=== PATIENT | female | born 1930 | race Caucasian/White ===

== ENCOUNTER 2019-05-23 14:07 | Observation (INO) ==
--- NOTE | 2019-05-23 14:46 | PROVIDER DOCUMENTATION ---
HPI-Chest Pain - General Chief Complaint: Chest Pain Stated Complaint: HEART Time Seen by Provider: 05/23/19 14:22 Source: patient, family (daughter at bedside) Home Medications: Home Medication List Medication Instructions Recorded Confirmed Last Taken Type Alendronate [Fosamax] 35 mg PO DIRECTED 05/23/19 05/23/19 05/17/19 History Amlodipine [Norvasc] 2.5 mg PO DAILY 05/23/19 05/23/19 05/23/19 08:00 History Aspirin 81 mg PO DAILY 05/23/19 05/23/19 05/23/19 08:00 History Cholecalciferol (Vitamin D3) 5,000 unit PO DAILY 05/23/19 05/23/19 05/23/19 08:00 History [Vitamin D3] Hydralazine [Apresoline] 25 mg PO DAILY 05/23/19 05/23/19 05/23/19 08:00 History Latanoprost 0.005% Oph Soln 1 drp BOTH EYES HS 05/23/19 05/23/19 05/22/19 21:00 History [Xalatan 0.005% Oph Soln] Levetiracetam 750 mg PO DAILY 05/23/19 05/23/19 05/23/19 08:00 History Oxybutynin [Ditropan] 5 mg PO BID 05/23/19 05/23/19 05/23/19 08:00 History Ropinirole [Requip] 1 mg PO QHS 05/23/19 05/23/19 05/22/19 21:00 History - History of Present Illness-CP Nature of Presenting Problem: 88 YO F brought in by daughter for chest pain that was last night. Pt states she had substernal sharp non radiating pains that occurred after she drank 3 beers. Her daughter gave her a zantac to take and it helped for a while, and then a few minutes later, the pain returned. They called EMS and the patient refused to come to the hospital. She called her PCP and they told her to take 4 baby aspirin. The daughter states the patient got up this monring and was doing fine, so the daughter went to work. Then when she got home the patient was complaining of chest pain again and they called the PCP to schedule for an appointment and was told to come to the ED. Pt denies n/v/ change in vision, change in gait or numbness in extremities. Pt has pmh for HTN that normally runs 170s. 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 She is currently living with her daughter and is independent with ADLs. Location: reports: substernal Chest Pain Radiation: reports: no radiation Quality of Pain: reports: fullness, pressure, sharp Onset/Duration: other (12 hours ago) Timing: gone now Context/Activities at Onset: reports: light activity (after drinking 3 beers) Modifying Factors: improves with: antacids (zantac) Associated Symptoms: reports: denies symptoms. denies: dizziness, edema, fatigue, nausea, shortness of breath, syncope, vomiting Aspirin Treatment Today: no aspirin today Similar Symptoms Previously?: No Recently Seen Here or By Another Healthcare Provider: No Review of Systems - Adult - REVIEW OF SYSTEMS - ADULT Constitutional: denies: chills, fever Eyes: denies: decreased vision, blurred vision, double vision Ears, Nose, Mouth & Throat: reports: no symptoms reported Cardiovascular: reports: see HPI, chest pain. denies: edema, orthopnea, syncope Respiratory: reports: no symptoms reported. denies: cough Gastrointestinal: reports: diarrhea. denies: abdominal pain, constipation, nausea, poor appetite Genitourinary: denies: dysuria, flank pain, frequent UTI's, hematuria Musculoskeletal: reports: no symptoms reported Integumentary: reports: no symptoms reported Neurological: denies: dizziness/vertigo, loss of balance, numbness, syncope Psychiatric: reports: no symptoms reported Endocrine: reports: no symptoms reported Hematologic/Lymphatic: denies: no symptoms reported Allergic/Immunologic: denies: no symptoms reported Past History - Adult - PAST MEDICAL HISTORY-ADULT Review of Records: reports: Social history reviewed & non-contributory. Major Childhood Illnesses: reports: denies history Respiratory: reports: denies history Gastrointestinal: reports: GERD Genitourinary: reports: denies history Musculoskeletal: reports: denies history, osteoporosis Neurological: reports: Seizures/Epilepsy. denies: stroke deficits Psychiatric: reports: denies history Endocrine/Immune: reports: denies history Other Conditions: reports: cataract/glaucoma - PRIOR SURGERIES/PROCEDURES Surgical/Procedure History: reports: appendectomy, hysterectomy, other (craniotomy s/p hemorrhage. carotid endarterectomy). denies: recent surgery - FAMILY HISTORY Family History: reviewed, not pertinent - SOCIAL HISTORY Smoking: denies Alcohol Use Frequency: twice a week Number of drinks per typical drinking period:: 2 drinks Living Situation: family Physical Exam-General - PHYSICAL EXAM-ADULT Initial Vital Signs Reviewed: Yes - CONSTITUTIONAL General Appearance: no apparent distress, thin - EYES Eyes: PERRL/EOMI, pink conjunctivae - HEAD, EARS, NOSE, MOUTH & THROAT HENMT: normocephalic/atraumatic - NECK Neck: non-tender, supple, normal inspection - RESPIRATORY Respiratory: chest non-tender, lungs clear, normal breath sounds, no respiratory distress - CARDIOVASCULAR Cardiovascular: normal peripheral pulses, regular rate, rhythm - GASTROINTESTINAL (ABDOMEN) Abdominal Exam: normal bowel sounds, non tender, soft - MUSCULOSKELETAL Back Exam: normal inspection Extremity: no pedal edema. negative: calf tenderness - SKIN Integumentary: normal color, normal turgor, warm/dry - NEUROLOGIC Neurologic: grossly normal, no motor/sensory deficits - PSYCHIATRIC Psych/Mental Status: normal mood/affect - HEART Score HEART Score: History: Moderately Suspicious HEART Score: Age: > or = 65 Years HEART Score: Risk Factors for Atherosclerotic Disease: > or = 3 Risk Factors or History of Atherosclerotic Disease (score 5) HEART Score: Troponin: < or = Normal Limit Progress - PLAN OF CARE/RESULTS Progress/Plan/Lab Results: Vital Signs - 8 hr 05/23/19 14:12 Temperature 98.3 F Pulse Rate 71 Respiratory Rate 18 Blood Pressure 226/70 O2 Sat by Pulse Oximetry 96 Laboratory Results - last 24 hr 05/23/19 05/23/19 05/23/19 14:45 14:45 14:45 WBC RBC Hgb Hct MCV MCH MCHC RDW Std Deviation Plt Count MPV Immature Gran % (Auto) Neut % (Auto) Lymph % (Auto) [place] % (Auto) Eos % (Auto) Baso % (Auto) Immature Gran # (Auto) Neut # (Auto) Lymph # (Auto) [place] # (Auto) Eos # (Auto) Baso # (Auto) PT 13.6 INR 1.02 PTT (Actin FS) 30.9 Sodium Potassium Chloride Carbon Dioxide Anion Gap BUN Creatinine Estimated GFR/1.73 m2 BUN/Creatinine Ratio Glucose Calculated Osmolality Calcium Total Bilirubin AST ALT Alkaline Phosphatase Creatine Kinase Troponin T < 0.010 Evu-R-Ciwfyiolyez Pept 827 H Total Protein Albumin Globulin Albumin/Globulin Ratio TSH 05/23/19 05/23/19 05/23/19 14:45 14:45 14:45 WBC 7.08 RBC 3.81 L Hgb 12.0 Hct 34.6 L MCV 90.8 MCH 31.5 H MCHC 34.7 RDW Std Deviation 13.6 Plt Count 272 MPV 9.9 Immature Gran % (Auto) 0.3 Neut % (Auto) 61.9 Lymph % (Auto) 19.2 L [place] % (Auto) 13.1 H Eos % (Auto) 4.7 Baso % (Auto) 0.8 Immature Gran # (Auto) 0.02 Neut # (Auto) 4.38 Lymph # (Auto) 1.36 [place] # (Auto) 0.93 H Eos # (Auto) 0.33 Baso # (Auto) 0.06 PT INR PTT (Actin FS) Sodium 137 Potassium 3.9 Chloride 99 Carbon Dioxide 24 L Anion Gap 14 BUN 11 Creatinine 0.7 Estimated GFR/1.73 m2 > 60 BUN/Creatinine Ratio 16 Glucose 105 H Calculated Osmolality 274 Calcium 9.6 Total Bilirubin 0.38 AST 24 ALT 11 Alkaline Phosphatase 42 Creatine Kinase 44 Troponin T Luh-K-Jremzonebfk Pept Total Protein 6.6 Albumin 4.0 Globulin 2.6 Albumin/Globulin Ratio 1.5 TSH 1.74 Orders Category Date Time Status Cardiac Monitoring DIRECTED Care 05/23/19 14:27 Active Repeat Vital Signs .Blood Pressure Care 05/23/19 14:48 Active cxr [CHEST-PORTABLE] [RAD] Stat Exams 05/23/19 14:23 Completed CBC WITH ELECTRONIC DIFF [HEME] Stat Lab 05/23/19 14:45 Completed CK PROFILE [SP CHEM] Stat Lab 05/23/19 14:45 Completed COMPREHENSIVE METABOLIC PANEL [CHEM] Stat Lab 05/23/19 14:45 Completed MAGNESIUM [CHEM] Stat Lab 05/23/19 15:36 Received PRO B-NATRIURETIC PEPTIDE Stat Lab 05/23/19 14:45 Completed PROTIME WITH INR [COAG] Stat Lab 05/23/19 14:45 Completed PTT [COAG] Stat Lab 05/23/19 14:45 Completed TROPONIN T Stat Lab 05/23/19 14:45 Completed TSH Stat Lab 05/23/19 14:45 Completed EKG [EKG] Stat Ther 05/23/19 14:22 Draft Result Diagrams: 05/23/19 14:45 05/23/19 14:45 - REASSESSMENT Reassessment #1 Status: unchanged (pt currently without pain. requesting for something to eat. labs reviewed. CXR reviewed. elevated proBNP. repeat BPs 160s/70s) - EKG 1 Time of EKG reading by physician:: 14:12 EKG Read and Signed by:: Juan Miguel Reynolds EKG Interpretation (*Must complete 3 of following elements*): Abnormal Rate: 65 Rhythm: NSR [place]: left QRS: normal [place] Interval: normal Prior EKG Comparison: no prior EKG (inferior infarct age undetermined) - XRAY 1 XRAY Study: Chest (CHEST-PORTABLE - 05/23/2019 INDICATION: chest pain COMPARISON: None FINDINGS: There is a small platelike opacity projecting over the right hilum. Otherwise the lungs are clear. Heart size is normal. No pneu mothorax or pleural effusion. There is probably a small hiatal hernia. IMPRESSION: Small platelike atelectasis or infiltrate projecting over the right hilum. Hiatal hernia. Electronically signed by Jeison Morales 05/23/2019 2:58 PM) Comparison with other Films: no prior study - CONSULTS/PCP/HOSPITALIST Notification Time Discussed: 16:06 Consult Disposition: Will see in ED (Accepted by Dr. Ramey) Departure - Departure Date of Disposition Decision: 05/23/19 Time of Disposition Decision: 16:06 DIAGNOSIS: Elevated brain natriuretic peptide (BNP) level Disposition: ADMITTED INPATIENT 09 Certified Medical Emergency: Emergent Condition: Stable Referrals and Follow-Ups: Sal Albert MD [Primary Care Provider] - - Critical Care Note This patient required my direct & personal management of CC.: No Attestation - Physician/ VANESSA Attestation The physician spent face to face time with patient:: Yes Advanced Practice Provider documentation review:: Supervising physician onsite and consulted in the evaluation and care of this patient. The physician did have a face to face encounter with the patient.
--- NOTE | 2019-05-23 14:54 | EKG Report ---
Test Performed on : 05/23/2019 2:12:54 PM Test Reason : chest pain Blood Pressure : / mmHG Vent. Rate : 065 BPM Atrial Rate : 065 BPM P-R Int : 160 ms QRS Dur : 118 ms QT Int : 432 ms P-R-T Axes : 103 -64 082 degrees QTc Int : 449 ms Normal sinus rhythm. Left axis deviation Inferior infarct , age undetermined Anteroseptal infarct , age undetermined Abnormal ECG No previous ECGs available Unconfirmed Result
--- NOTE | 2019-05-23 15:00 | Diag Imaging Result Doc PS360 ---
CHEST-PORTABLE - 05/23/2019 INDICATION: chest pain COMPARISON: None FINDINGS: There is a small platelike opacity projecting over the right hilum. Otherwise the lungs are clear. Heart size is normal. No pneumothorax or pleural effusion. There is probably a small hiatal hernia. IMPRESSION: Small platelike atelectasis or infiltrate projecting over the right hilum. Hiatal hernia. Electronically signed by Jeison Morales 05/23/2019 2:58 PM
[2019-05-23 15:01] LABS: BASO# 0.06 X1000 (0.0-0.2); BASO% 0.8 % (0.0-0.8); EOS# 0.33 X1000 (0.0-0.7); EOS% 4.7 % (0.0-10.0); HEMATOCRIT 34.6 % (37.0-47.0); IMM GRAN# 0.02 X1000 (0.0-0.04); IMM GRAN% 0.3 % (0.0-0.5); LYMPH# 1.36 X1000 (1.2-3.4); LYMPH% 19.2 % (20.5-51.1); MCH 31.5 PG (27-31); MCHC 34.7 g/dL (33-37); MCV 90.8 FL (81-99); MONO# 0.93 X1000 (0.11-0.59); MONO% 13.1 % (1.7-9.3); MPV 9.9 FL (7.4-10.4); NEUT# 4.38 X1000 (1.4-6.5); NEUT% 61.9 % (42.2-75.2); PLT 272 X1000 (130-400); RBC 3.81 XMIL (4.2-5.4); RDW 13.6 % (11.5-14.5); WBC 7.08 X1000 (4.8-10.8)
[2019-05-23 15:07] LABS: INR 1.02; PROTIME 13.6 Seconds (11.0-16.0); PTT 30.9 Seconds (22.3-41.8)
[2019-05-23 15:31] LABS: AGAP 14; ALB/GLOB RATIO 1.5; ALKALINE PHOSPHATASE 42 U/L (32-104); BUN 11 mg/dL (8-22); CALCIUM 9.6 mg/dL (8.8-10.2); CHLORIDE 99 mmol/L (98-107); CK PROFILE 44 U/L (24-173); COSMO 274; CREATININE 0.7 mg/dL (0.5-0.9); ESTIMATED GFR > 60; GLUCOSE 105 mg/dL (70-104); GOT 24 U/L (10-30); GPT 11 U/L (10-36); POTASSIUM 3.9 mmol/L (3.5-5.1); SODIUM 137 mmol/L (136-145); TCO2 24 mmol/L (25-35); TOTAL BILIRUBIN 0.38 mg/dL (0.20-1.00); TOTAL PROTEIN 6.6 g/dL (6.3-8.3)
[2019-05-23] MEDS ORDERED: TYLENOL PO PRN (17:15)
[2019-05-23] MEDS ORDERED: ZOFRAN IV PRN (17:15)
--- NOTE | 2019-05-23 17:23 | HISTORY AND PHYSICAL ---
PRIMARY CARE PHYSICIAN: Sal Albert MD CHIEF COMPLAINT: Epigastric abdominal pain. HISTORY OF PRESENTING ILLNESS: This is an 88-year-old female, who presents to [facility] with her daughter, stating that she has been having epigastric abdominal pain recently that occurred after she drank 3 beers. Daughter states that she has not had any chest pain, no radiating of the symptoms, that it stayed right in the epigastric area. She has been giving her Zantac 150 mg daily, and the symptoms will resolve. She did call her PCP also when she was having this epigastric pain, and they told her to take 4 baby aspirin, but the pain continues to come back and so she brought her in for further evaluation and treatment. It is noted when she arrived, she had an elevation in her blood pressure of 226/70. Currently it is down to 181/80. She does have a history of hypertension and states that she has been taking her medications as prescribed. Her first set of cardiac enzymes was negative. ProBNP was 827. Her EKG showed a normal sinus rhythm at 65. Chest x-ray showed a small plate-like atelectasis or infiltrate projecting over the right hilum and a hiatal hernia so she will be admitted for further evaluation and treatment. PAST MEDICAL HISTORY: Seizures, hypertension, and restless legs syndrome. PAST SURGICAL HISTORY: Hysterectomy, appendectomy, left carotid endarterectomy, and a blood clot removed from her brain. FAMILY HISTORY: Reviewed and noncontributory. SOCIAL HISTORY: She currently lives with family. Denies any tobacco use and quit smoking cigarettes 18 years ago. She does drink 3 mini beers daily and denies any illicit drug use. ALLERGIES: No known drug allergies. HOME MEDICATION: She takes Fosamax 35 mg 1 tablet on Wednesdays. Norvasc 2.5 mg p.o. daily. Aspirin 81 mg p.o. daily. Vitamin D3 5000 units p.o. daily. Apresoline 25 mg p.o. daily. Xalatan 0.005% ophthalmic solution to both eyes at bedtime. Keppra 750 mg p.o. daily. Oxybutynin 5 mg p.o. b.i.d. Requip 1 mg p.o. at bedtime. DIAGNOSTIC STUDIES: Laboratory data showed a white blood cell count of 7.08, hemoglobin 12, hematocrit 34.6, platelets 272,000. PT 13.6, INR 1.02. Sodium 137, potassium 3.9, chloride 99, CO2 of 24, BUN of 11, creatinine 0.7, glucose 105. Magnesium 1.8. Cardiac enzyme was negative. ProBNP of 827. TSH of 1.74. EKG with normal sinus rhythm at 65. Chest x-ray showed a small platelike atelectasis or infiltrate projecting over the right hilum and a hiatal hernia. REVIEW OF SYSTEMS: She denied any fever, chills, blurred vision, dizziness. She denied any chest pain, coughing, shortness of breath. She was positive for epigastric abdominal pain, but denied any nausea, vomiting, constipation, diarrhea, or burning or hurting with urination. PHYSICAL EXAMINATION: VITAL SIGNS: On arrival she had a temperature of 98.3 degrees, pulse 71, respirations 18, blood pressure 226/70, saturating 96% on room air. Currently, blood pressure is down to 181/80. GENERAL: This is an 88-year-old female, who is sitting up in the bed, is very hard of hearing, but does have bilateral hearing aids. HEMNT: Normocephalic and atraumatic. Normal ENT inspection. Oropharynx and nares are clear. EYES: Pupils are equal, round, and reactive to light and accommodation. Extraocular movements are intact. NECK: Normal inspection. Normal range of motion. LUNGS: Clear to auscultation bilaterally with equal lung expansion and chest wall movement. HEART: With regular rate and rhythm. No murmurs, rubs, or gallops. ABDOMEN: Soft, nontender, nondistended. Bowel sounds are present x4 quadrants. MUSCULOSKELETAL: She had 5/5 strength x4 extremities. NEUROLOGICAL: The cranial nerves 2-12 appear grossly intact. ASSESSMENT: 1. Hypertension, uncontrolled. 2. Epigastric abdominal pain. 3. Seizures, history of. 4. Restless legs syndrome. OUR PLAN: She will be admitted to the medical unit. Placed on telemetry O2 per protocol. We will apply SCDs for DVT prophylaxis. We will continue her home medications as previously identified. We will do serial cardiac enzymes. It does not seem that this is likely going to be a cardiac issue. She does have accelerated hypertension that is most likely uncontrolled. We will try to get that in a little better control. We will place her on her Zantac 150 mg p.o. daily. We will recheck a CBC and BMP in the a.m. Further orders after seen by attending. Dictated by FROILAN Adam for Matthew Ramey MD cc: FROILAN Adam MD Agree with the above. the following is my own face to face assessment. patient pain quite atypical but does have an elevated BNP which is a new finding, although her previous echo did show mild pulmonary hypertension. will eval for ACS but strongly suspect gerd/mild gastritis, especially as she uses naproxen regularly. MTDD
[2019-05-23 18:43] LABS: URINE SOURCE CLEAN CATCH
[2019-05-23 18:50] LABS: BILIRUBIN URINE NEGATIVE (NEGATIVE); BLOOD URINE SMALL (NEGATIVE); COLOR YELLOW; GLUCOSE URINE NEGATIVE (NEGATIVE); KETONE URINE NEGATIVE (NEGATIVE); LEUKOCYTES URINE LARGE (NEGATIVE); NITRITE URINE NEGATIVE (NEGATIVE); PROTEIN URINE TRACE mg/dL (NEGATIVE); SP GRAVITY URINE 1.017; TURBIDITY URINE HAZY (CLEAR); UROBILINOGEN URINE 2 mg/dL (NORMAL)
[2019-05-23 18:51] LABS: UR EPITHELIAL CELLS <10 /HPF (<10); URINE BACTERIA NEGATIVE /HPF; URINE WBC TNTC /HPF (<10)
[2019-05-23] MEDS ORDERED: APRESOLINE PO PRN (18:54)
[2019-05-23 18:56] LABS: URINE YEAST NONE SEEN
[2019-05-23] MEDS ORDERED: REQUIP PO SCH (21:00)
[2019-05-23] MEDS: DITROPAN PO SCH (21:14)
[2019-05-23] MEDS: XALATAN 0.005% OPH SOLN BOTH EYES SCH (21:15)
[2019-05-24] MEDS: XALATAN 0.005% OPH SOLN BOTH EYES SCH (00:01)
[2019-05-24 05:56] LABS: BASO# 0.06 X1000 (0.0-0.2); EOS# 0.33 X1000 (0.0-0.7); EOS% 5.5 % (0.0-10.0); HEMATOCRIT 31.5 % (37.0-47.0); LYMPH% 18.2 % (20.5-51.1); MCH 31.5 PG (27-31); MCHC 34.9 g/dL (33-37); MCV 90.3 FL (81-99); MONO# 0.79 X1000 (0.11-0.59); MONO% 13.1 % (1.7-9.3); NEUT# 3.76 X1000 (1.4-6.5); NEUT% 62.2 % (42.2-75.2); PLT 240 X1000 (130-400); RBC 3.49 XMIL (4.2-5.4); RDW 13.4 % (11.5-14.5); WBC 6.04 X1000 (4.8-10.8)
[2019-05-24 06:25] LABS: AGAP 12; BUN 9 mg/dL (8-22); CALCIUM 8.9 mg/dL (8.8-10.2); CHLORIDE 94 mmol/L (98-107); COSMO 259; CREATININE 0.5 mg/dL (0.5-0.9); ESTIMATED GFR > 60; GLUCOSE 88 mg/dL (70-104); POTASSIUM 3.5 mmol/L (3.5-5.1); SODIUM 130 mmol/L (136-145); TCO2 24 mmol/L (25-35)
[2019-05-24] MEDS ORDERED: FOSAMAX PO SCH (07:00)
[2019-05-24] MEDS: DITROPAN PO SCH (08:22)
[2019-05-24] MEDS ORDERED: ZANTAC PO SCH (09:00)
[2019-05-24] MEDS ORDERED: VITAMIN D PO SCH (09:00)
[2019-05-24] MEDS ORDERED: ASPIRIN PO SCH (09:00)
[2019-05-24] MEDS ORDERED: KEPPRA PO SCH (09:00)
[2019-05-24] MEDS ORDERED: NORVASC PO SCH (09:00)
[2019-05-24] MEDS ORDERED: APRESOLINE PO SCH (09:00)
[2019-05-24 11:48] VITALS: BP 123/48
--- NOTE | 2019-05-24 16:03 | ECHO REPORT ---
ORDER DATE: 05/24/2019 INDICATION: Hypertension, elevated proBNP. FINDINGS: 1. Right atrium is normal in size at 2.7 cm. 2. Mild tricuspid regurgitation. RV systolic pressure of 33. 3. Normal RV size and systolic function. 4. No significant pulmonic insufficiency. 5. Normal left atrial size with a dimension of 3.1 cm. 6. No mitral valve prolapse. Mild mitral regurgitation. No evidence of mitral stenosis. 7. Normal LV size, end-diastolic dimension of 3 cm. Mild to moderate left ventricular hypertrophy with a posterior and interventricular septal wall thickness of 1.4 cm each. Normal LV systolic function. The estimated EF is greater than 55%. Secondary to the patient's body habitus, this is a somewhat difficult study, but I do not see any obvious segmental abnormalities. 8. Aortic valve opens well. No evidence of stenosis or insufficiency. 9. Aorta appears normal in visualized segments. 10. No pericardial effusion seen. cc: MD Milka Mccullough CRNP
--- NOTE | 2019-05-29 13:18 | DISCHARGE SUMMARY ---
ADMISSION DATE: 05/23/2019 DISCHARGE DATE: 05/24/2019 PERTINENT STUDIES: Echocardiogram with normal EF and mildly elevated pulmonary pressure of 33. No major valvular abnormalities. Troponin negative x4. Urine culture showed no growth. DISCHARGE DIAGNOSES: 1. Epigastric pain. 2. Hypertension. 3. History of seizure. 4. Restless legs syndrome. 5. Asymptomatic bacteriuria. 1. Gastroesophageal reflux disease. HOSPITAL COURSE: The patient presented initially with complaints of epigastric pain. They reported that it was primary after drinking alcohol, in which the patient drinks three beers a day. It improved with Zantac. Initial evaluation with EKG and troponin was unremarkable. The patient was noted to have a blood pressure of 226/70. They had noted some link between her blood pressure and her pain, so she was admitted for blood pressure control and further evaluation. BNP was noted to be mildly elevated, which had not been noted in the past, so an echocardiogram was obtained, which showed mildly elevated right-sided pressures, but no evidence of heart failure. Troponins remained negative. The patient was placed on home Norvasc with the addition of hydralazine with marked improvement of her blood pressure. She was placed on Protonix for her epigastric pain, which was favored to be GERD related. The patient's symptoms resolved, her blood pressure was improved, and cardiac workup was unremarkable, so she was discharged home to follow up with her PCP. DISCHARGE VITAL SIGNS: Temperature 98.1 degrees, pulse 64, respirations 18, blood pressure 123/48, O2 saturation 99% on room air. DISCHARGE DIET: Low salt. MEDICATIONS: Requip as previously prescribed, aspirin 81 mg daily, Fosamax as previously prescribed, levetiracetam 750 mg p.o. daily, Norvasc 2.5 mg p.o. daily, latanoprost drops to both eyes in the evening, hydralazine 25 mg p.o. t.i.d., Protonix 40 mg p.o. daily. FOLLOWUP PLAN: The patient is discharged home to follow up with PCP for blood pressure recheck. Hydralazine added for blood pressure control and Protonix added for likely GERD. Greater than 30 minutes was spent arranging discharge and counseling the patient. [facility]ITAL[facility]amal
== END 2019-05-24 16:05 | disposition home or self-care (01) ==
LOC: ED 14:07 → 4N 14:07
PROVIDERS: ATTEND Internal Medicine

== ENCOUNTER 2019-07-04 17:51 | Inpatient (IN) ==
[2019-07-04 18:31] LABS: URINE SOURCE CATH
[2019-07-04 18:34] LABS: BILIRUBIN URINE NEGATIVE (NEGATIVE); BLOOD URINE NEGATIVE (NEGATIVE); COLOR YELLOW; GLUCOSE URINE NEGATIVE (NEGATIVE); KETONE URINE NEGATIVE (NEGATIVE); LEUKOCYTES URINE NEGATIVE (NEGATIVE); NITRITE URINE NEGATIVE (NEGATIVE); PH URINE 6.5; PROTEIN URINE NEGATIVE (NEGATIVE); SP GRAVITY URINE 1.007; TURBIDITY URINE CLEAR (CLEAR); UR EPITHELIAL CELLS <10 /HPF (<10); URINE BACTERIA NEGATIVE /HPF; URINE RBC <10 /HPF (<10); URINE WBC <10 /HPF (<10); UROBILINOGEN URINE NORMAL (NORMAL)
[2019-07-04 18:44] LABS: BASO# 0.03 X1000 (0.0-0.2); BASO% 0.2 % (0.0-0.8); EOS# 0.07 X1000 (0.0-0.7); EOS% 0.4 % (0.0-10.0); HEMATOCRIT 33.5 % (37.0-47.0); HEMOGLOBIN 12.4 g/dL (12.0-16.0); IMM GRAN# 0.08 X1000 (0.0-0.04); IMM GRAN% 0.5 % (0.0-0.5); LYMPH# 1.75 X1000 (1.2-3.4); LYMPH% 11.2 % (20.5-51.1); MCH 31.9 PG (27-31); MCV 86.1 FL (81-99); MONO# 1.64 X1000 (0.11-0.59); MONO% 10.5 % (1.7-9.3); MPV 9.2 FL (7.4-10.4); NEUT# 11.99 X1000 (1.4-6.5); NEUT% 77.2 % (42.2-75.2); PLT 599 X1000 (130-400); RBC 3.89 XMIL (4.2-5.4); RDW 11.4 % (11.5-14.5); WBC 15.56 X1000 (4.8-10.8)
--- NOTE | 2019-07-04 18:54 | PROVIDER DOCUMENTATION ---
This chart was entered by Ashley Sneed Scribe, acting as scribe for Ava Tracy MD. HPI-General Adult - General Source: patient Unable to obtain history due to:: other (hx of dementia) - History of Present Illness -Gen Adult Nature of Presenting Problems: pt is a 88 yr old female presenting via EMS with complaint of back pain post fa ll. daughter reported to EMS pt admitted to fall last night but did not tell her until today, pt is denying fall, pt denies any pain, pt denies any complaints. pt hx of dementia, seizure disorder and hearing loss. Location of Pain/Injury: reports: none (pt denies any complaints) Quality of Pain: reports: none Modifying Factors: improves with: nothing Associated Symptoms: reports: denies symptoms. denies: back/neck pain, joint pain <Ava Tracy - Last Filed: 07/04/19 18:53> <Prosper Kerns - Last Filed: 07/04/19 21:30> - General Chief Complaint: Back Pain Stated Complaint: low back pain Time Seen by Provider: 07/04/19 18:07 Allergies/Adverse Reactions: Patient Allergies Allergy/AdvReac Type Severity Reaction Status Date / Time Penicillins Allergy HIVES Verified 07/04/19 18:00 Home Medications: Home Medication List Medication Instructions Recorded Confirmed Last Taken Type Alendronate [Fosamax] 35 mg PO DIRECTED 05/23/19 07/04/19 05/17/19 History Amlodipine [Norvasc] 2.5 mg PO DAILY 05/23/19 07/04/19 05/23/19 08:00 History Aspirin 81 mg PO DAILY 05/23/19 07/04/19 05/23/19 08:00 History Cholecalciferol (Vitamin D3) 5,000 unit PO DAILY 05/23/19 07/04/19 05/23/19 08:00 History [Vitamin D3] Latanoprost 0.005% Oph Soln 1 drp BOTH EYES HS 05/23/19 07/04/19 05/22/19 21:00 History [Xalatan 0.005% Oph Soln] Levetiracetam 750 mg PO DAILY 05/23/19 07/04/19 05/23/19 08:00 History Ropinirole [Requip] 1 mg PO QHS 05/23/19 07/04/19 05/22/19 21:00 History Pantoprazole [Protonix] 40 mg PO DAILY@0700 #30 tab 05/24/19 07/04/19 Unknown Rx Bisoprolol/Hydrochlorothiazide 1 tab PO DAILY 07/04/19 07/04/19 Unknown History [Bisoprolol-Hctz 10-6.25 mg Tab] Hydralazine [Apresoline] 25 mg PO BID 07/04/19 07/04/19 Unknown History Oxybutynin [Ditropan] 2.5 mg PO BID 07/04/19 07/04/19 Unknown History Review of Systems - Adult - REVIEW OF SYSTEMS - ADULT ROS:: limited per condition (hx of dementia) Constitutional: reports: no symptoms reported Eyes: reports: no symptoms reported Ears, Nose, Mouth & Throat: reports: no symptoms reported Cardiovascular: denies: chest pain, palpitations, syncope Respiratory: denies: cough, shortness of breath Gastrointestinal: denies: abdominal pain Genitourinary: reports: no symptoms reported Musculoskeletal: denies: back pain, joint pain Integumentary: reports: no symptoms reported Neurological: reports: no symptoms reported Psychiatric: reports: no symptoms reported Endocrine: reports: no symptoms reported Hematologic/Lymphatic: reports: no symptoms reported Allergic/Immunologic: reports: no symptoms reported All Other Systems: Reviewed and Negative <Ava Tracy - Last Filed: 07/04/19 18:53> Past History - Adult - PAST MEDICAL HISTORY-ADULT Review of Records: reports: Old Records Reviewed, Nursing Assessment Review, Medications Reviewed, Social history reviewed & non-contributory. Major Childhood Illnesses: reports: denies history Cardiovascular: reports: blood clots Respiratory: reports: denies history Gastrointestinal: reports: GERD Obstetrical/Gynecological: reports: denies history Genitourinary: reports: denies history Musculoskeletal: reports: denies history, osteoporosis Neurological: reports: Seizures/Epilepsy. denies: stroke deficits Psychiatric: reports: denies history Endocrine/Immune: reports: denies history Other Conditions: reports: cataract/glaucoma - PRIOR SURGERIES/PROCEDURES Surgical/Procedure History: reports: appendectomy, hysterectomy, other (cranio tobin s/p hemorrhage. carotid endarterectomy). denies: recent surgery - IMMUNIZATION STATUS Childhood Immunizations: See Nurse Assessment Flu Vaccine: See Nurse Assessment - FAMILY HISTORY Family History: reviewed, not pertinent - SOCIAL HISTORY Smoking: cigarettes Substance Use: alcohol Alcohol Use Frequency: every day Living Situation: family <RossanaJose Guadalupejian Mathias - Last Filed: 07/04/19 18:53> Physical Exam-General - PHYSICAL EXAM-ADULT Initial Vital Signs Reviewed: Yes - CONSTITUTIONAL General Appearance: alert, no apparent distress, thin - EYES Eyes: PERRL/EOMI - HEAD, EARS, NOSE, MOUTH & THROAT HENMT: normocephalic/atraumatic, moist mucous membranes - NECK Neck: non-tender, full range of motion, supple, normal inspection - RESPIRATORY Respiratory: chest non-tender, lungs clear, normal breath sounds, no respiratory distress, no accessory muscle use - CARDIOVASCULAR Cardiovascular: normal peripheral pulses, regular rate, rhythm, other (3+ sony ing edema to BLE). negative: no edema - GASTROINTESTINAL (ABDOMEN) Abdominal Exam: normal bowel sounds, non tender, soft - LYMPHATIC Lymphatic: no adenopathy - MUSCULOSKELETAL Back Exam: other (stage 1 pressure ulcers to T1, T2) Extremity: non-tender, other (contractures) - SKIN Integumentary: normal color, normal turgor, warm/dry <Ava Tracy - Last Filed: 07/04/19 18:53> Progress - PLAN OF CARE/RESULTS Progress/Plan/Lab Results: Vital Signs - 8 hr 07/04/19 18:02 Temperature 98.3 F Pulse Rate 70 Respiratory Rate 19 Blood Pressure 185/73 O2 Sat by Pulse Oximetry 97 Result Diagrams: 07/04/19 18:00 - CHANGE OF SHIFT REPORT (ED Provider) 1 Report Given and Care Transferred to:: Dr Kerns Time of Transfer: 19:00 Items Pending: Labs, CT/MRI Results <Ava Tracy - Last Filed: 07/04/19 18:53> - PLAN OF CARE/RESULTS Progress/Plan/Lab Results: Vital Signs - 8 hr 07/04/19 18:02 Temperature 98.3 F Pulse Rate 70 Respiratory Rate 19 Blood Pressure 185/73 O2 Sat by Pulse Oximetry 97 Laboratory Results - last 24 hr 07/04/19 07/04/19 07/04/19 18:00 18:00 18:15 WBC 15.56 H RBC 3.89 L Hgb 12.4 Hct 33.5 L MCV 86.1 MCH 31.9 H MCHC 37.0 RDW Std Deviation 11.4 L Plt Count 599 H MPV 9.2 Immature Gran % (Auto) 0.5 Neut % (Auto) 77.2 H Lymph % (Auto) 11.2 L [place] % (Auto) 10.5 H Eos % (Auto) 0.4 Baso % (Auto) 0.2 Immature Gran # (Auto) 0.08 H Neut # (Auto) 11.99 H Lymph # (Auto) 1.75 [place] # (Auto) 1.64 H Eos # (Auto) 0.07 Baso # (Auto) 0.03 Sodium 124 L Potassium 2.8 L Chloride 84 L Carbon Dioxide 21 L Anion Gap 19 BUN 7 L Creatinine 0.6 Estimated GFR/1.73 m2 > 60 BUN/Creatinine Ratio 12 Glucose 110 H Calculated Osmolality 248 Calcium 9.5 Total Bilirubin 0.66 AST 32 H ALT 15 Alkaline Phosphatase 46 Total Protein 6.7 Albumin 3.7 Globulin 3.0 Albumin/Globulin Ratio 1.2 Urine Source CATH Urine Color YELLOW Urine Turbidity CLEAR Urine pH 6.5 Ur Specific [place] 1.007 Urine Protein NEGATIVE Ur Glucose (Stick) NEGATIVE Ur Ketones (Stick) NEGATIVE Urine Blood NEGATIVE Urine Nitrite NEGATIVE Urine Bilirubin NEGATIVE Urobilinogen Dipstick NORMAL Urine Leukocytes NEGATIVE Urine WBC (Auto) <10 Urine RBC (Auto) <10 U Epithel Cells (Auto) <10 Urine Bacteria (Auto) NEGATIVE Orders Category Date Time Status CHEST-1 VIEW [RAD] Stat Exams 07/04/19 18:[address] HEAD/C-SPINE W/O CONTRAST [CT] Stat Exams 07/04/19 18:[address] LUMBAR SPINE W/O CONTRAST [CT] Stat Exams 07/04/19 18:[address] PELVIS W/O CONTRAST [CT] Stat Exams 07/04/19 18:13 Completed FEMUR MIN 2 VIEWS LEFT [RAD] Stat Exams 07/04/19 18:13 Completed FEMUR MIN 2 VIEWS RIGHT [RAD] Stat Exams 07/04/19 18:13 Completed CBC WITH ELECTRONIC DIFF [HEME] Stat Lab 07/04/19 18:00 Completed CMP [COMPREHENSIVE METABOLIC PANEL] [CHEM] Stat Lab 07/04/19 18:00 Completed UA NIMS W/REFLEX CULT [URINALYSIS] Stat Lab 07/04/19 18:15 Completed Result Diagrams: 07/04/19 18:00 07/04/19 18:00 - CONSULTS/PCP/HOSPITALIST Notification #1 *Consult/PCP/Hospitalist*: [place] Time Discussed: 21:25 Consult Disposition: Will see in ED, Admit <Prosper Kerns - Last Filed: 07/04/19 21:30> Departure <Ava Tracy - Last Filed: 07/04/19 18:53> - Departure Date of Disposition Decision: 07/04/19 Time of Disposition Decision: 21:26 Certified Medical Emergency: Emergent - Critical Care Note This patient required my direct & personal management of CC.: No <Prosper Kerns - Last Filed: 07/04/19 21:30> - Departure DIAGNOSIS: Hyponatremia, Hypokalemia, Weakness Fall Qualifiers: Encounter type: initial encounter Qualified Code(s): W19.XXXA - Unspecified fall, initial encounter Disposition: ADMITTED INPATIENT 09 Condition: Good Referrals and Follow-Ups: Sal Albert MD [Primary Care Provider] - Attestation - Physician/ VANESSA Attestation Patient care was provided by Advanced Practice Provider:: No The physician spent face to face time with patient:: Yes Advanced Practice Provider documentation review:: Supervising physician onsite and consulted in the evaluation and care of this patient. The physician did have a face to face encounter with the patient. <Ava Tracy - Last Filed: 07/04/19 18:53> - Physician/ VANESSA Attestation Patient care was provided by Advanced Practice Provider:: No The physician spent face to face time with patient:: Yes Advanced Practice Provider documentation review:: Supervising physician onsite and consulted in the evaluation and care of this patient. The physician did have a face to face encounter with the patient. <Prosper Kerns - Last Filed: 07/04/19 21:30> This chart was documented by the indicated scribe, (Ashley Sneed Scribe) and accurately reflects the services I performed and decisions made by me, Ava Tracy MD, as attested by the provider's signature.
--- NOTE | 2019-07-04 19:35 | Diag Imaging Result Doc PS360 ---
EXAM: FEMUR MIN 2 VIEWS LEFT INDICATION: fall TECHNIQUE: 4 views COMPARISON: None. FINDINGS: The bones are somewhat osteopenic. There is degenerative arthropathy of both hips. There is no discrete fracture, dislocation, or significant intrinsic osseous lesion, otherwise. There is patchy atherosclerotic calcification at the thighs. Surrounding soft tissues are essentially unremarkable, otherwise. IMPRESSION: Chronic changes as described. No definite acute osseous abnormality. Electronically signed by Alex Chung 07/04/2019 7:33 PM
--- NOTE | 2019-07-04 19:52 | Diag Imaging Result Doc PS360 ---
EXAM: CT HEAD/C-SPINE W/O CONTRAST INDICATION: fall TECHNIQUE: This exam was performed using automated exposure control, adjustment of mA or kV according to patient size, and/or use of iterative reconstruction technique. COMPARISON: None. FINDINGS: Head: There is a craniotomy defect in the right temporal region and there is underlying extensive right temporal lobe encephalomalacia. There is age-related brain atrophy and there is patchy low attenuation in the periventricular and subcortical white matter suggesting moderate microangiopathy. There is no definite acute infarct given the limited sensitivity of CT versus MRI. There is no discrete intracranial mass, mass effect, or intracranial hemorrhage. Other than the craniotomy defect. The calvaria is intact. Surrounding soft tissues are unremarkable. C-spine: There is very severe multilevel degenerative disc disease and facet arthropathy throughout the cervical spine. The L2-3 level and L3-4 level are fused. There is grade 2 anterolisthesis of C4 on C5 and C7 on T1. There is mild grade 1 retrolisthesis of C5 on C6. This all appears to be associated with the severe degenerative arthropathy. Otherwise, there is no discrete fracture, acute subluxation, or intrinsic osseous lesion. The surrounding soft tissues are essentially unremarkable. IMPRESSION: 1.Chronic changes as detailed above but no evidence of acute intracranial pathology. 2.Very advanced degenerative arthropathy throughout the cervical spine but no evidence of fracture or other definite acute C-spine injury. Electronically signed by Alex Chung 07/04/2019 7:49 PM
--- NOTE | 2019-07-04 19:55 | Diag Imaging Result Doc PS360 ---
EXAM: CT LUMBAR SPINE W/O CONTRAST INDICATION: fall TECHNIQUE: This exam was performed using automated exposure control, adjustment of mA or kV according to patient size, and/or use of iterative reconstruction technique. COMPARISON: None. FINDINGS: There is advanced multilevel degenerative disc disease and facet arthropathy throughout the lumbar spine and there is severe lumbar scoliosis. There is loss of disc space height at multiple levels. The vertebral body heights are maintained. There is mild retrolisthesis of L1 on L2 and L2 on L3 related to the severe degenerative arthropathy. Otherwise, there is no discrete fracture, acute subluxation, or significant intrinsic osseous lesion. A large hiatal hernia and advanced aortoiliac atherosclerotic calcification is noted incidentally. Surrounding soft tissues are essentially unremarkable, otherwise. IMPRESSION: Advanced degenerative arthropathy but no evidence of fracture or other definite acute L-spine injury. Electronically signed by Alex Chung 07/04/2019 7:53 PM
--- NOTE | 2019-07-04 20:02 | Diag Imaging Result Doc PS360 ---
EXAM: CT PELVIS W/O CONTRAST INDICATION: fall TECHNIQUE: This exam was performed using automated exposure control, adjustment of mA or kV according to patient size, and/or use of iterative reconstruction technique. COMPARISON: None. FINDINGS: The bones are osteopenic. There are mild to moderate degenerative changes of both hips. The SI joints are intact. There is no evidence of fracture, dislocation, or significant intrinsic osseous lesion involving the pelvis, hips, or sacrum. A pessary device is noted incidentally and there is marked distention of the urinary bladder. There is advanced atherosclerotic calcification. Surrounding soft tissues are essentially unremarkable, otherwise. IMPRESSION: 1.Chronic bony changes as described. No evidence of acute osseous abnormality. 2.Other incidental/nonacute findings detailed above. Electronically signed by Alex Chung 07/04/2019 7:59 PM
--- NOTE | 2019-07-04 20:17 | Diag Imaging Result Doc PS360 ---
EXAM: FEMUR MIN 2 VIEWS RIGHT INDICATION: fall TECHNIQUE: 4 views COMPARISON: None. FINDINGS: There are degenerative changes at the knee and hip. There is no discrete fracture, dislocation, or significant intrinsic osseous lesion, otherwise. There is patchy atherosclerotic calcification at the right thigh. IMPRESSION: Chronic changes as described. No evidence of acute osseous abnormality. Electronically signed by Alex Chung 07/04/2019 8:15 PM
--- NOTE | 2019-07-04 20:18 | Diag Imaging Result Doc PS360 ---
EXAM: CHEST-1 VIEW INDICATION: fall TECHNIQUE: One view COMPARISON: 05/23/2019 FINDINGS: The lungs are grossly clear. There is no discrete pleural fluid collection or pneumothorax. There is a moderate-sized hiatal hernia. The cardiomediastinal silhouette and central vasculature are unremarkable, otherwise. IMPRESSION: No evidence of acute pathology by plain radiograph. Electronically signed by Alex Chung 07/04/2019 8:15 PM
[2019-07-04 20:25] LABS: ESTIMATED GFR > 60
[2019-07-04 20:42] LABS: AGAP 19; ALB/GLOB RATIO 1.2; ALBUMIN 3.7 g/dL (3.5-5.0); ALKALINE PHOSPHATASE 46 U/L (32-104); BUN 7 mg/dL (8-22); CALCIUM 9.5 mg/dL (8.8-10.2); CHLORIDE 84 mmol/L (98-107); COSMO 248; CREATININE 0.6 mg/dL (0.5-0.9); GLUCOSE 110 mg/dL (70-104); GOT 32 U/L (10-30); GPT 15 U/L (10-36); POTASSIUM 2.8 mmol/L (3.5-5.1); SODIUM 124 mmol/L (136-145); TCO2 21 mmol/L (25-35); TOTAL BILIRUBIN 0.66 mg/dL (0.20-1.00); TOTAL PROTEIN 6.7 g/dL (6.3-8.3)
[2019-07-04] MEDS ORDERED: KLOR-CON PO ONE (23:24)
[2019-07-04] MEDS: POTASSIUM CHLORIDE 20 MEQ/SWI 20 MEQ/100 ML IVPB IV SCH (23:49)
[2019-07-04] MEDS: NS 1,000 ML IV PRN (23:50)
--- NOTE | 2019-07-04 23:50 | HISTORY AND PHYSICAL ---
PRIMARY CARE PHYSICIAN: Dr. Sal Albert. CHIEF COMPLAINT: Weakness, lethargy. HISTORY OF PRESENTING ILLNESS: An 88-year-old female with a history of hypertension, GERD, seizures, and restless legs syndrome, was brought to the emergency department due to patient having worsening weakness and lethargy. As per daughter, she was unable to arouse the patient, unable to get her up from the bed. She was seen in the ER. She was moderately lethargic. She is hard of hearing and most of the history is obtained from the daughter. As per daughter, she has been deteriorating over the past several weeks. The patient was evaluated in the emergency department. She was found to be hyponatremic and hypokalemic, and subsequently, she will need admission for electrolyte replacement. At the time of my examination, the patient was resting comfortably. However, not much history could be obtained from her, and as discussed, most of the history is obtained from her daughter. PAST MEDICAL HISTORY: Includes hypertension, GERD, seizures, restless legs syndrome. PAST SURGICAL HISTORY: Brain surgery for a blood clot, hysterectomy, left carotid endarterectomy, appendectomy. ALLERGIES: Penicillin. CURRENT MEDICATIONS: Fosamax 35 mg p.o. q.week as directed, Norvasc 2.5 mg p.o. daily, aspirin 81 mg p.o. daily, bisoprolol/HCT 10/6.25 mg p.o. daily, hydralazine 25 mg p.o. b.i.d., Keppra 750 mg p.o. daily, oxybutynin 2.5 mg p.o. b.i.d., pantoprazole 40 mg p.o. daily, Requip 1 mg p.o. at bedtime. SOCIAL HISTORY: She is a former smoker. History of alcohol use, mostly beers. No history of drug use. She is basically wheelchair bound. FAMILY HISTORY: No history of coronary disease. REVIEW OF SYSTEMS: Limited. PHYSICAL EXAMINATION: GENERAL: A frail, elderly female. She looks somewhat malnourished, where she is without any respiratory distress. VITAL SIGNS: Temperature 98.3 degrees, pulse 70, respiration 19, blood pressure 185/73. HEENT: Atraumatic, normocephalic. Extraocular movements intact. PERRLA. The patient is hard of hearing. NECK: No masses. CHEST: Clear to auscultation. CARDIOVASCULAR: Regular rate and rhythm. ABDOMEN: Soft with positive bowel sounds. EXTREMITIES: No edema. NEUROLOGIC: Patient is arousable. GENITOURINARY: No bladder distention. SKIN: Warm. LABORATORIES AND STUDIES: WBCs 15.56, hemoglobin 12.4 hematocrit 33.5, platelets 599,000. Sodium 124, potassium 2.8, chloride 84, CO2 is 21, BUN is 7, creatinine 0.6, glucose is 110. UA is nitrite negative. Chest x-ray is negative. CT of the head, no acute intracranial pathology. ASSESSMENT: An 88-year-old female with a history of hypertension, gastroesophageal reflux disease, seizure disorder, was brought to the emergency department due to patient having worsening weakness and lethargy. She was evaluated in the emergency department. She was found to be hyponatremic and hypokalemic. Due to her presenting symptoms, she will need admission for further management. ASSESSMENT: 1. Generalized weakness. 2. Overall deconditioning. 3. Hyponatremia. 4. Hypokalemia. 5. Seizure disorder. 6. Hypertension. 7. Malnutrition. PLAN: 1. We will admit patient to medical floor with telemetry. 2. Continue with supportive treatment with IV fluids. 3. We will monitor her sodium level. 4. We will replace her electrolytes and monitor potassium. We will also check a magnesium level. 5. Put patient on seizure precautions and restart her antiplatelet agents. 6. We will obtain a Nutrition consult. 7. The family is considering longterm placement, and subsequently, we will consult [employer] to assist with this. 8. We will put patient on DVT prophylaxis with SCD. 9. We will continue to follow and reassess, make further recommendation based on patient's clinical course. cc: Jorge Luis Albert MD
[2019-07-05] MEDS: POTASSIUM CHLORIDE 20 MEQ/SWI 20 MEQ/100 ML IVPB IV SCH (02:20)
[2019-07-05] MEDS: PROTONIX PO SCH (06:05)
[2019-07-05 07:21] LABS: BASO# 0.03 X1000 (0.0-0.2); BASO% 0.3 % (0.0-0.8); EOS% 0.9 % (0.0-10.0); HEMATOCRIT 33.9 % (37.0-47.0); IMM GRAN# 0.08 X1000 (0.0-0.04); IMM GRAN% 0.8 % (0.0-0.5); LYMPH# 2.52 X1000 (1.2-3.4); LYMPH% 23.9 % (20.5-51.1); MCH 31.7 PG (27-31); MCHC 35.4 g/dL (33-37); MCV 89.4 FL (81-99); MONO# 1.51 X1000 (0.11-0.59); MONO% 14.3 % (1.7-9.3); MPV 9.1 FL (7.4-10.4); NEUT# 6.29 X1000 (1.4-6.5); NEUT% 59.8 % (42.2-75.2); PLT 504 X1000 (130-400); RBC 3.79 XMIL (4.2-5.4); RDW 11.7 % (11.5-14.5); WBC 10.53 X1000 (4.8-10.8)
[2019-07-05 07:46] LABS: AGAP 15; BUN 6 mg/dL (8-22); CALCIUM 9.2 mg/dL (8.8-10.2); CHLORIDE 94 mmol/L (98-107); COSMO 251; CREATININE 0.4 mg/dL (0.5-0.9); ESTIMATED GFR > 60; GLUCOSE 91 mg/dL (70-104); MAGNESIUM 1.7 mg/dL (1.5-2.7); POTASSIUM 4.5 mmol/L (3.5-5.1); SODIUM 126 mmol/L (136-145); TCO2 17 mmol/L (25-35)
[2019-07-05] MEDS ORDERED: ZIAC 10/6.25 MG PO SCH (09:00)
[2019-07-05] MEDS ORDERED: FOSAMAX PO SCH (09:00)
[2019-07-05] MEDS: NORVASC PO SCH (10:13)
[2019-07-05] MEDS: ASPIRIN PO SCH (10:13)
[2019-07-05] MEDS: DITROPAN PO SCH ×2 (10:13→20:15)
[2019-07-05] MEDS: APRESOLINE PO SCH ×2 (10:14→20:15)
[2019-07-05] MEDS: KEPPRA PO SCH (10:14)
[2019-07-05] MEDS: VITAMIN D PO SCH (10:14)
[2019-07-05] MEDS: ANALGESIC BALM TOP PRN (15:20)
[2019-07-05] MEDS: NS 1,000 ML IV PRN (16:31)
[2019-07-05] MEDS: MAGNESIUM SULFATE 2 GM/S.W.I. 2 GM/50 ML IVPB IV SCH ×2 (16:31→20:10)
--- NOTE | 2019-07-05 17:32 | PROGRESS NOTE ---
DATE: 07/05/2019 INTERVAL HISTORY: No acute events overnight. SUBJECTIVE: She is hearing impaired and occasionally moaning and groaning. The patient's daughter is at bedside. The patient does not appear in acute distress. She is eating her meal at the moment. VITALS: Temperature 97.5 degrees, pulse 82, respiratory rate 12, blood pressure 132/55, saturating 98% on room air. PHYSICAL EXAMINATION: She does not appear in any acute distress. HEENT: She has a right-sided hearing aid. Oral cavity is moist. Lungs: Air entry bilaterally equal. No wheeze, rhonchi, crackles. Cardiovascular: S1, S2 normal. Not tachycardic. No murmur, rub, or gallop. Abdomen: Soft, nontender. She had lower extremity edema extending up to mid morales levels bilaterally. She initially complained of excruciating pain bilateral feet. However, when I diverted her attention and I was able to move her knee joint and ankle joint without any pain. LABORATORY: She had leukocytosis on presentation which had resolved. Her hyponatremia and hypochloremia has been improving. No positive microbiological data. IMAGING: Pelvic CT, lumbar spine CT, femur x-ray, head, cervical CT and chest x-ray reviewed. 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 She also had arterial calcification. ASSESSMENT AND PLAN: 1. Failure to thrive with gradual physical deconditioning and generalized weakness, likely related to age and poor oral intake. She also has calcification of intra-abdominal vessels, though there is no definitive history of nausea, vomiting, or postprandial pain. I will continue physical therapy. She is dependent on her activities of daily living and may need to go to half-way eventually, since her family works. Dietitian has been consulted and patient's diet has been changed to regular. 2. Hyponatremia, hypochloremia, hypokalemia on presentation due to poor oral intake. I will continue intravenous fluids and follow up with electrolytes tomorrow. 3. 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 I will continue her home levetiracetam. 4. Other. Continue ropinirole for restless legs syndrome; start trazodone for insomnia; alendronate for osteoporosis; amlodipine for essential hypertension; hydralazine for essential hypertension; oxybutynin for bladder spasm. Her hydrochlorothiazide has been discontinued because of hyponatremia. Plan of care discussed with the patient's daughter. Her questions have been answered. cc: Kiko Chase MD
[2019-07-05] MEDS: XALATAN 0.005% OPH SOLN BOTH EYES SCH (20:13)
[2019-07-05] MEDS: DESYREL PO SCH (20:15)
[2019-07-05] MEDS: REQUIP PO SCH (20:15)
[2019-07-06] MEDS: PROTONIX PO SCH ×2 (05:10→06:07)
[2019-07-06 07:24] LABS: BASO# 0.02 X1000 (0.0-0.2); BASO% 0.2 % (0.0-0.8); EOS# 0.17 X1000 (0.0-0.7); EOS% 1.9 % (0.0-10.0); HEMOGLOBIN 10.3 g/dL (12.0-16.0); IMM GRAN# 0.04 X1000 (0.0-0.04); IMM GRAN% 0.4 % (0.0-0.5); LYMPH# 1.46 X1000 (1.2-3.4); LYMPH% 16.1 % (20.5-51.1); MCH 31.3 PG (27-31); MCHC 35.5 g/dL (33-37); MCV 88.1 FL (81-99); MONO# 1.12 X1000 (0.11-0.59); MONO% 12.3 % (1.7-9.3); MPV 9.2 FL (7.4-10.4); NEUT# 6.27 X1000 (1.4-6.5); NEUT% 69.1 % (42.2-75.2); PLT 458 X1000 (130-400); RBC 3.29 XMIL (4.2-5.4); RDW 11.7 % (11.5-14.5); WBC 9.08 X1000 (4.8-10.8)
[2019-07-06 07:52] LABS: AGAP 11; BUN 3 mg/dL (8-22); CHLORIDE 96 mmol/L (98-107); COSMO 250; CREATININE 0.5 mg/dL (0.5-0.9); ESTIMATED GFR > 60; GLUCOSE 98 mg/dL (70-104); MAGNESIUM 2.1 mg/dL (1.5-2.7); POTASSIUM 3.2 mmol/L (3.5-5.1); SODIUM 126 mmol/L (136-145); TCO2 19 mmol/L (25-35)
[2019-07-06] MEDS: KEPPRA PO SCH (08:36)
[2019-07-06] MEDS: VITAMIN D PO SCH (08:36)
[2019-07-06] MEDS: NORVASC PO SCH (08:37)
[2019-07-06] MEDS: DITROPAN PO SCH ×2 (08:37→20:11)
[2019-07-06] MEDS: APRESOLINE PO SCH ×2 (08:37→20:12)
[2019-07-06] MEDS: ASPIRIN PO SCH (08:37)
[2019-07-06] MEDS ORDERED: CALMOSEPTINE OINTMENT TOP ONE (14:31)
[2019-07-06] MEDS: POTASSIUM CHLORIDE 20% LIQUID PO SCH ×2 (18:38→20:11)
--- NOTE | 2019-07-06 19:13 | PROGRESS NOTE ---
DATE: 07/06/2019 INTERVAL HISTORY: No acute events overnight. She has been having multiple bouts of diarrhea and had to be changed multiple times. She has been complaining of generalized body pain throughout the day. Currently, at the time of my evaluation, she is moaning and groaning. VITAL SIGNS: Temperature 96.1 degrees, pulse 75, respiratory rate 19, blood pressure 140/42. She is saturating 99% on room air. PHYSICAL EXAMINATION: General: Not in acute distress. Oral Cavity: Moist. Lungs: Air entry bilaterally equal. No wheeze, rhonchi, or crackles. Cardiovascular: S1, S2 normal. Systolic murmur affecting base of the heart, crescendo/decrescendo. Not tachycardic. No rub or gallop. Abdomen: Scaphoid, soft, nontender. She has a bowel movement at the moment. Extremities: She has mild edema affecting the lower extremity and some erythema. No really signs of cellulitis. LABS: Suggestive of no leukocytosis. Normal hemoglobin and normal platelet count. She does have persistent hyponatremia, hypochloremia, hypokalemia, and I discussed with the nurse about restarting the intravenous fluids. ASSESSMENT AND PLAN: 1. Failure to thrive with gradual physical deconditioning and generalized weakness, related to age and poor oral intake. Continue intravenous fluids, regular with soft diet, and physical therapy. She may eventually need long-term retirement facility. 2. Hyponatremia, hypochloremia, hypokalemia on presentation, poor oral intake, and now also related to diarrhea. I will follow up stool studies. We will continue intravenous fluids and potassium repletion. Follow up BMP tomorrow. 3. History of right craniotomy and post craniotomy seizure. Continue home levetiracetam. 4. Other. Continue ropinirole for restless leg syndrome; trazodone for insomnia; alendronate for osteoporosis; amlodipine for essential hypertension; hydralazine for essential hypertension; oxybutynin for bladder spasm; and I will add tramadol for pain as needed. 5. Plan of care discussed with the patient's daughter. Her questions have been answered. cc: Kiko Chase MD
[2019-07-06] MEDS: ULTRAM PO PRN (20:11)
[2019-07-06] MEDS: REQUIP PO SCH (20:12)
[2019-07-06] MEDS: DESYREL PO SCH (20:12)
[2019-07-06] MEDS: XALATAN 0.005% OPH SOLN BOTH EYES SCH (20:14)
[2019-07-06] MEDS: LIDODERM TOP SCH (20:29)
[2019-07-07] MEDS: PROTONIX PO SCH (06:27)
[2019-07-07 07:59] LABS: AGAP 11; BUN 5 mg/dL (8-22); CALCIUM 8.2 mg/dL (8.8-10.2); CHLORIDE 94 mmol/L (98-107); COSMO 249; CREATININE 0.5 mg/dL (0.5-0.9); ESTIMATED GFR > 60; GLUCOSE 139 mg/dL (70-104); POTASSIUM 3.8 mmol/L (3.5-5.1); SODIUM 124 mmol/L (136-145); TCO2 19 mmol/L (25-35)
[2019-07-07] MEDS: DITROPAN PO SCH ×2 (09:05→20:14)
[2019-07-07] MEDS: NORVASC PO SCH (09:06)
[2019-07-07] MEDS: APRESOLINE PO SCH ×2 (09:06→20:15)
[2019-07-07] MEDS: ASPIRIN PO SCH (09:06)
[2019-07-07] MEDS: KEPPRA PO SCH (09:07)
[2019-07-07] MEDS: LIDODERM TOP SCH (09:07)
[2019-07-07] MEDS ORDERED: NS 1,000 ML IV SCH (10:30)
[2019-07-07] MEDS ORDERED: LOMOTIL PO PRN (12:47)
--- NOTE | 2019-07-07 13:55 | PROGRESS NOTE ---
DATE: 07/07/2019 SUBJECTIVE: No acute events overnight. Unfortunately, despite the order, intravenous fluids were not started for some reason and I discussed with the patient's nurse about restarting it today. She does not have any more fecal tube. She is asleep. She did have an episode of low-grade fever. She is currently sleepy and does not engage in meaningful conversation. She also has a hearing impairment. VITALS: Temperature is 98.7, pulse 77, respirations 19, blood pressure 115/30. She is saturating 100% on room air. PHYSICAL EXAMINATION: General: Cachetic. Not in acute distress. HEENT: Oral cavity is dry. Respiratory: Air entry is bilaterally equal. No wheeze, rhonchi, or crackles. Cardiovascular: S1 and S2 are normal. Bedside monitor shows a regular heart rhythm. No murmur, rub, or gallop. Gastrointestinal: The abdomen is scaphoid, soft, and nontender. Extremities: Mild lower extremity edema and some erythema. No signs of cellulitis. Neurological: She is on drowsy but arousable to strong verbal stimuli. She appears to be have baseline cognitive impairment. LABS: No CBC today. BMP is suggestive of resolution of hypokalemia. Significant history of hyponatremia, hypochloremia, and low bicarbonate. Microbiology: C difficile analysis did not have any C. difficile and I will start her on diphenoxylate atropine as needed if she has watery diarrhea. ASSESSMENT AND PLAN: 1. Failure to thrive with gradual physical deconditioning and generalized weakness related to age and poor oral intake and severe protein energy malnutrition. I again discussed with the nurse about starting her on intravenous fluids and continuing her soft diet. Physical Therapy and Rn Team Leader Team are on board for long-term placement. Photo Technologist recs appreciated. 2. Hyponatremia, hypochloremia, and hypokalemia on presentation due to poor oral intake related to diarrhea and not getting IV fluids. The stool studies are unremarkable for any serious bacterial infection at the moment. I will keep her on diphenoxylate atropine as needed for diarrhea and continue intravenous fluid resuscitation. Hypokalemia has been resolved. 3. History of right craniotomy and post craniotomy seizure. Continue home levetiracetam. 4. Other. Continue ropinirole for restless leg syndrome, trazodone for insomnia, alendronate for osteoporosis, amlodipine for essential hypertension, hydralazine for essential hypertension, oxybutynin for bladder spasm, and tramadol as needed for pain. DISPOSITION: According to my previous discussion probably the patient has a bed a nursing home facility on Wednesday. cc: Kiko Chase MD MTDD
[2019-07-07] MEDS: LOVENOX SUBQ SCH (14:12)
[2019-07-07] MEDS: VITAMIN D PO SCH (14:12)
[2019-07-07] MEDS: ULTRAM PO PRN ×2 (14:15→20:14)
[2019-07-07] MEDS: ANALGESIC BALM TOP PRN (14:30)
[2019-07-07] MEDS: XALATAN 0.005% OPH SOLN BOTH EYES SCH (20:12)
[2019-07-07] MEDS: REQUIP PO SCH (20:13)
[2019-07-07] MEDS: DESYREL PO SCH (20:15)
[2019-07-08] MEDS: PROTONIX PO SCH (06:05)
[2019-07-08 06:37] LABS: AGAP 7; BUN 6 mg/dL (8-22); CHLORIDE 100 mmol/L (98-107); COSMO 256; CREATININE 0.3 mg/dL (0.5-0.9); ESTIMATED GFR > 60; GLUCOSE 90 mg/dL (70-104); POTASSIUM 3.7 mmol/L (3.5-5.1); SODIUM 129 mmol/L (136-145); TCO2 22 mmol/L (25-35)
[2019-07-08] MEDS: DITROPAN PO SCH ×2 (08:11→20:13)
[2019-07-08] MEDS: VITAMIN D PO SCH (08:11)
[2019-07-08] MEDS: KEPPRA PO SCH (08:11)
[2019-07-08] MEDS: NORVASC PO SCH (08:11)
[2019-07-08] MEDS: ASPIRIN PO SCH (08:12)
[2019-07-08] MEDS: LIDODERM TOP SCH (08:12)
[2019-07-08] MEDS: APRESOLINE PO SCH ×2 (08:12→20:13)
[2019-07-08] MEDS ORDERED: NS 1,000 ML IV SCH (10:30)
[2019-07-08] MEDS: LOVENOX SUBQ SCH (12:38)
--- NOTE | 2019-07-08 13:17 | PROGRESS NOTE ---
DATE: 07/08/2019 INTERVAL HISTORY: No acute events overnight. She was hemodynamically stable. SUBJECTIVE: She is alert to verbal stimuli but does not engage and answer questions meaningfully. She did have one temperature spike of 100.3 yesterday. Pulse is otherwise unremarkable. VITALS: Temperature 97.6 degrees, pulse 80, respiratory rate 31, blood pressure 130/60, saturating 99% room air. PHYSICAL EXAMINATION: General: Does not appear in acute distress. Cachectic, temporal wasting. HEENT: Oral cavity is dry. Lungs: Air entry bilaterally equal. No wheeze, rhonchi, or crackles. Cardiovascular: S1, S2 normal. No murmur, rub, or gallop. Abdomen: Scaphoid, soft, nontender. Extremity: Mild lower extremity edema, more pronounced on the right side and around the ankle region for which I will get the x-ray to rule out any fracture. Neurologic: She is alert. She does not answer any questions. She is moving all extremities spontaneously. LABS: No CBC today. BMP suggestive of improvement in hyponatremia. Improvement in hypochloremia. Hypokalemia has resolved. Normal kidney function. Microbiology: C. difficile analysis, antigen, toxin and stool culture have been negative so far. ASSESSMENT AND PLAN: 1. Failure to thrive with gradual physical deconditioning and generalized weakness related to age and poor oral intake and severe protein calorie malnutrition. Continue intravenous fluids and diet with supplements. Physical Therapy and International Accountant team on board for long-term placement. Dietitian recommendations appreciated. 2. Hyponatremia, hypochloremia and hypokalemia on presentation due to poor oral intake. Also, partly due to diarrhea. Stool studies are unremarkable. I will give another intravenous fluid 1 L and give her Lomotil if required for her diarrhea. 3. History of right craniotomy and post craniotomy seizure. Continue home levetiracetam. 4. Others. Continue ropinirole for restless legs syndrome, trazodone for insomnia, alendronate for osteoporosis, amlodipine and hydralazine for essential hypertension, oxybutynin for bladder spasm and tramadol as needed for pain. DISPOSITION: Awaiting long-term shelter facility placement. Plan of care discussed with the patient. Yesterday, I had a discussion about plan of care with the patient's daughter, and their questions have been answered. Her code status is DNR level 1. cc: Kiko Chase MD
--- NOTE | 2019-07-08 13:29 | Diag Imaging Result Doc PS360 ---
EXAM: ANKLE 2 VIEWS RIGHT INDICATION: Rule out fracture. Right ankle swelling and pain TECHNIQUE: 2 views COMPARISON: None. FINDINGS: There is no discrete fracture, dislocation, or significant intrinsic osseous lesion. The surrounding soft tissues are essentially unremarkable by plain radiograph. IMPRESSION: No evidence of acute osseous abnormality. Electronically signed by Alex Chung 07/08/2019 1:27 PM
[2019-07-08] MEDS: REQUIP PO SCH (20:13)
[2019-07-08] MEDS: XALATAN 0.005% OPH SOLN BOTH EYES SCH (20:13)
[2019-07-08] MEDS: DESYREL PO SCH (20:14)
[2019-07-09 06:27] LABS: BASO# 0.02 X1000 (0.0-0.2); BASO% 0.2 % (0.0-0.8); EOS# 0.09 X1000 (0.0-0.7); EOS% 0.7 % (0.0-10.0); HEMOGLOBIN 9.8 g/dL (12.0-16.0); IMM GRAN# 0.07 X1000 (0.0-0.04); IMM GRAN% 0.6 % (0.0-0.5); LYMPH% 10.5 % (20.5-51.1); MCH 30.9 PG (27-31); MCHC 33.8 g/dL (33-37); MCV 91.5 FL (81-99); MONO# 1.01 X1000 (0.11-0.59); MONO% 8.1 % (1.7-9.3); MPV 9.6 FL (7.4-10.4); NEUT# 9.94 X1000 (1.4-6.5); NEUT% 79.9 % (42.2-75.2); PLT 428 X1000 (130-400); RBC 3.17 XMIL (4.2-5.4); WBC 12.43 X1000 (4.8-10.8)
[2019-07-09 06:45] LABS: AGAP 10; BUN 13 mg/dL (8-22); CALCIUM 7.9 mg/dL (8.8-10.2); CHLORIDE 100 mmol/L (98-107); COSMO 260; CREATININE 0.3 mg/dL (0.5-0.9); ESTIMATED GFR > 60; GLUCOSE 119 mg/dL (70-104); POTASSIUM 3.9 mmol/L (3.5-5.1); SODIUM 129 mmol/L (136-145); TCO2 19 mmol/L (25-35)
[2019-07-09] MEDS: PROTONIX PO SCH (06:55)
[2019-07-09] MEDS: APRESOLINE PO SCH ×2 (08:26→20:35)
[2019-07-09] MEDS: ASPIRIN PO SCH (08:27)
[2019-07-09] MEDS: KEPPRA PO SCH (08:27)
[2019-07-09] MEDS: VITAMIN D PO SCH (08:27)
[2019-07-09] MEDS: LIDODERM TOP SCH (08:27)
[2019-07-09] MEDS: ULTRAM PO PRN ×2 (08:28→15:35)
[2019-07-09] MEDS: NORVASC PO SCH (08:28)
[2019-07-09] MEDS: DITROPAN PO SCH ×2 (08:28→20:34)
[2019-07-09] MEDS: LOVENOX SUBQ SCH (13:18)
--- NOTE | 2019-07-09 14:35 | Diag Imaging Result Doc PS360 ---
EXAM: CHEST-PORTABLE INDICATION: Leucocytosis and tachycardia. R/o pneumonia TECHNIQUE: One view COMPARISON: 07/04/2019 FINDINGS: There is stable elevation of the right hemidiaphragm. There is now blunting of the left costophrenic angle suggesting a small left effusion. There is adjacent mild atelectasis and/or infiltrate. No other new consolidation is identified. The cardiac silhouette is stable. IMPRESSION: Development of a very small left effusion with adjacent atelectasis and/or infiltrate at the left lung base. Electronically signed by Alex Chung 07/09/2019 2:33 PM
--- NOTE | 2019-07-09 14:36 | PROGRESS NOTE ---
DATE: 07/09/2019 INTERVAL HISTORY: No acute events overnight. Ms. Cooper is now developing tachycardia and leukocytosis. She is also a little hypertensive. When I see her, she was appearing to be at baseline, moaning and groaning. She says that she wants to talk to her daughter. VITALS: Currently, temperature 97.8 degrees, pulse 109, respiratory rate 17, blood pressure 180/80, she is saturating 99% on room air. PHYSICAL EXAMINATION: Oral cavity is dry. Lungs: Air entry bilaterally equal. No wheeze, rhonchi, crackles. Cardiovascular: S1, S2 normal. No murmur, rub, or gallop. She is tachycardic. Examination is limited because she is not able to move in the bed. Abdomen: Scaphoid. She is moaning and groaning when I try to reposition her. Her lower extremity edema is better. She is alert. She is following commands like shaking hands. She has hearing impairment. LABS: Suggestive of WBC of 12,000, normocytic anemia with hemoglobin of 9.8, platelet count of 428,000. She continues to have acceptable range of sodium level. Her hypochloremia has resolved. MICROBIOLOGY: Stool analysis did not have any significant problem. IMAGING: Ankle x-ray yesterday was unremarkable for fracture. ASSESSMENT AND PLAN: 1. Failure to thrive with gradual physical deconditioning and generalized weakness related to age and poor oral intake, and severe protein calorie malnutrition. I will give intravenous fluids as tolerated and continue current diet with supplements. Physical therapy and social service liaison are on board for long-term placement. 2. Hyponatremia, hypochloremia, and hypokalemia on presentation due to poor oral intake and intravascular volume depletion, now resolved. Her diarrhea is also controlled well on Lomotil, which I will continue. 3. History of right craniotomy, post craniotomy seizure. Continue home Keppra. 4. Others. Continue ropinirole for restless legs syndrome, trazodone for insomnia, alendronate for osteoporosis, amlodipine and hydralazine for hypertension, and tramadol as needed for pain. 5. Disposition. Awaiting placement. I will also get a urinalysis and chest x- ray to rule out pneumonia considering she had leukocytosis and tachycardia. Plan of care discussed with the nursing team. The patient's daughter is not at bedside currently. cc: Kiko Chase MD [facility]
[2019-07-09] MEDS ORDERED: ULTRAM PO PRN (17:19)
[2019-07-09] MEDS ORDERED: MORPHINE IV PRN (17:19)
[2019-07-09 18:48] LABS: URINE SOURCE CATH
[2019-07-09 18:51] LABS: BILIRUBIN URINE NEGATIVE (NEGATIVE); BLOOD URINE NEGATIVE (NEGATIVE); COLOR YELLOW; GLUCOSE URINE NEGATIVE (NEGATIVE); KETONE URINE NEGATIVE (NEGATIVE); LEUKOCYTES URINE TRACE (NEGATIVE); NITRITE URINE NEGATIVE (NEGATIVE); PROTEIN URINE NEGATIVE (NEGATIVE); SP GRAVITY URINE 1.011; TURBIDITY URINE CLEAR (CLEAR); UROBILINOGEN URINE NORMAL (NORMAL)
[2019-07-09 18:54] LABS: UR EPITHELIAL CELLS <10 /HPF (<10); URINE BACTERIA 2+ /HPF; URINE RBC <10 /HPF (<10); URINE WBC <10 /HPF (<10)
[2019-07-09 19:05] LABS: URINE YEAST PRESENT
[2019-07-09 19:07] LABS: URINE CRYSTALS NONE SEEN
[2019-07-09 19:10] LABS: URINE CASTS NONE SEEN; URINE SMALL ROUND CELLS RENAL PRESENT
[2019-07-09] MEDS: REQUIP PO SCH (20:34)
[2019-07-09] MEDS: DESYREL PO SCH (20:35)
[2019-07-09] MEDS: XALATAN 0.005% OPH SOLN BOTH EYES SCH (21:22)
[2019-07-10] MEDS: PROTONIX PO SCH (05:31)
[2019-07-10 07:32] LABS: BASO# 0.06 X1000 (0.0-0.2); BASO% 0.5 % (0.0-0.8); EOS% 2.7 % (0.0-10.0); HEMATOCRIT 27.6 % (37.0-47.0); HEMOGLOBIN 9.5 g/dL (12.0-16.0); IMM GRAN# 0.06 X1000 (0.0-0.04); IMM GRAN% 0.5 % (0.0-0.5); LYMPH# 1.54 X1000 (1.2-3.4); LYMPH% 13.8 % (20.5-51.1); MCH 31.6 PG (27-31); MCHC 34.4 g/dL (33-37); MCV 91.7 FL (81-99); MPV 9.2 FL (7.4-10.4); NEUT# 8.18 X1000 (1.4-6.5); NEUT% 73.5 % (42.2-75.2); PLT 427 X1000 (130-400); RBC 3.01 XMIL (4.2-5.4); RDW 11.9 % (11.5-14.5); WBC 11.14 X1000 (4.8-10.8)
[2019-07-10] MEDS: KEPPRA PO SCH (09:01)
[2019-07-10] MEDS: LIDODERM TOP SCH (09:01)
[2019-07-10] MEDS: NORVASC PO SCH (09:02)
[2019-07-10] MEDS: VITAMIN D PO SCH (09:02)
[2019-07-10] MEDS: DITROPAN PO SCH (09:02)
[2019-07-10] MEDS: ASPIRIN PO SCH (09:02)
[2019-07-10] MEDS: APRESOLINE PO SCH (09:02)
[2019-07-10] MEDS ORDERED: LOPRESSOR IV ONE (10:27)
[2019-07-10] MEDS ORDERED: LEVAQUIN 500 MG/D5W 500 MG/100 ML IVPB IV SCH (11:00)
[2019-07-10] MEDS ORDERED: LOPRESSOR PO ONE (11:21)
--- NOTE | 2019-07-10 11:50 | EKG Report ---
Test Performed on : 07/10/2019 10:36:08 AM Test Reason : Tachycardia Blood Pressure : / mmHG Vent. Rate : 122 BPM Atrial Rate : 122 BPM P-R Int : 152 ms QRS Dur : 114 ms QT Int : 338 ms P-R-T Axes : 000 -75 099 degrees QTc Int : 481 ms Sinus tachycardia. with premature atrial complexes. Left axis deviation Inferior infarct (cited on or before 23-MAY-2019) Anteroseptal infarct (cited on or before 23-MAY-2019) Abnormal ECG When compared with ECG of 23-MAY-2019 14:12, (Unconfirmed) premature atrial complexes. are now present Vent. rate has increased BY 57 BPM Questionable change in initial forces of Inferior leads Confirmed by Luan JEFFERS, Fer Lewis ([id number]) on 07/11/2019 11:06:42 PM
[2019-07-10] MEDS ORDERED: MORPHINE IV ONE (12:19)
--- NOTE | 2019-07-10 13:08 | DISCHARGE SUMMARY ---
ADMISSION DATE: 07/04/2019 DISCHARGE DATE: 07/10/2019 DISCHARGE DISPOSITION: [facility]. DISCHARGE CONDITION: Hemodynamically stable. She is breathing well on room air. She has been started on antibiotics for newly-diagnosed pneumonia. She is still very weak, and has significantly decreased oral intake. DISCHARGE DIAGNOSES: 1. Generalized weakness and physical deconditioning due to general debility, poor oral intake, and age. 2. Hyponatremia, hypokalemia, and hypochloremia. 3. Failure to thrive. 4. Left lower lobe pneumonia leading to tachycardia. 5. Non-bacterial diarrhea, now well controlled. OTHER DIAGNOSES: 1. History of right craniotomy in the past. 2. History of post craniotomy seizure. 3. History of restless legs syndrome. 4. History of insomnia. 5. History of musculoskeletal pain. 6. Essential hypertension. 7. Osteoporosis. 8. Severe protein energy malnutrition. 9. History of left carotid endarterectomy and hysterectomy and chronic gastroesophageal reflux disease. DISCHARGE DIET: Pureed diet with Ensure Clear with all meals. DISCHARGE MEDICATIONS: 1. Ropinirole 1 mg at nighttime. 2. Aspirin 81 mg daily. 3. Oxybutynin 2.5 mg b.i.d. 4. Alendronate 35 mg once a week. She should have a discussion about eventually stopping this medication after discussion of benefits versus risks with her regular physician. 5. Levetiracetam 750 mg daily. 6. Amlodipine 2.5 mg daily. 7. Vitamin D3, 5000 units daily. 8. Latanoprost 0.005% ophthalmic solution 1 drop to both eyes at nighttime. 9. Trazodone 25 mg at nighttime. 10. Analgesic balm applied for musculoskeletal pain 2 to 4 times daily as needed. 11. Levofloxacin 500 mg daily for 6 days for pneumonia. 12. Lidocaine 5% patch daily application on back for back pain. 13. Lomotil 1 tablet every 8 hours as needed for diarrhea. 14. Metoprolol 25 mg b.i.d. 15. Pantoprazole 40 mg daily. 16. Tramadol 50 mg every 6 hours as needed for pain, 25 tablets have been prescribed. PHYSICAL EXAMINATION: Vital Signs: At the time of discharge, temperature 98.1 degrees, pulse 99, respiratory rate 12, blood pressure 158/84, saturating 98% on room air. General: Cachectic. Has severe protein energy malnutrition and temporal wasting. Not in acute distress. She is sleepy. HEENT: Oral cavity dry air. Lungs: Air entry decreased in left inframammary region with inspiratory crackles. Otherwise, adequate air entry. No wheeze, rhonchi, or crackles. Cardiovascular: S1, S2 normal. Appears regular on bedside court recording monitor. No murmur, rub, or gallop. Abdomen: Scaphoid, soft, nontender. Extremities: Mild lower extremity edema. Neurologic: She has hearing impairment. However, she follows commands like opening mouth and answers simple questions. LABORATORY DATA: At the time of discharge, WBC 11.1, hemoglobin 9.5, platelets 427,000. Electrolytes: Sodium 129, chloride 100, BUN 13, creatinine 0.3. Urinalysis was unremarkable. Microbiology MICROBIOLOGY: Clostridium difficile antigen and toxin were negative. Stool culture did not have any Salmonella, Shigella, Campylobacter, or Escherichia coli. SIGNIFICANT IMAGING DURING HOSPITAL ADMISSION: On admission, chest x-ray did not have any evidence of acute pathology. Head and cervical spine CT had chronic changes without evidence of acute intracranial pathology, very advance degenerative arthropathy throughout the cervical spine, without any evidence of fracture or C-spine injury. Femur x-ray had chronic changes without any abnormality. Lumbar spine CT had advanced degenerative arthropathy, without evidence of fracture or other acute bony pathology. Pelvis CT had chronic bony changes, without evidence of acute osseous abnormality. It did have osteopenia, without evidence of fracture, dislocation, or significant lesions. Ankle x-ray did not have any evidence of acute osseous abnormality. Chest x- ray repeat on 07/09/2019 had development of left very small effusion, with adjusted atelectasis and infiltrate at left lung base. HOSPITAL COURSE SUMMARY: Ms. Cooper is an 88-year-old lady who initially presented on 07/04/2019 with chief complaints of weakness and lethargy. She was living with her daughter, and she has had progressive functional decline with decreased oral intake, and she had started becoming more drowsy, so she was brought to the emergency room. In the emergency room, she was found to be lethargic. She did have hearing impairment. She also had reported history of fall, so she underwent x-ray and CT scan of her bones and head, which did not detect any acute pathology, though she was found to have significant hyponatremia with sodium of 124, so she was admitted for further management. She was started on intravenous fluid resuscitation, and physical therapy was offered to her, which she intermittently to some extent participated. Also, dietitian was consulted, and she was started on pureed diet with Ensure supplements. With intravenous fluids and diet, her condition slightly improved, and she was eating a little bit, and her sodium was better. While inside the hospital, she developed a tachycardia episode with heart rate of 130, and EKG had suggested sinus rhythm with premature atrial contraction. Urinalysis was unremarkable. However, repeat chest x- ray had left lower lobe pneumonia, so she was started on intravenous antibiotics. At the time of discharge, she will be discharged on oral antibiotics that she should complete the course of. A detailed discussion with her daughter was held about goals of care. She could be an appropriate candidate of hospice in the future if she continues to have gradual functional decline. Plan of care discussed with daughter. TIME SPENT: More than 30 minutes were spent discharging this patient. All of her questions were answered. cc: Kiko Chase MD
[2019-07-10 14:32] VITALS: BP 154/93
[2019-07-10] MEDS ORDERED: LOPRESSOR PO SCH (21:00)
== END 2019-07-10 16:11 | DRG 640 ==
LOC: SUPCPDRO → ED 17:51 → 3N 22:54 → SUATTDRO 22:54
PROVIDERS: ATTEND Internal Medicine